=== PATIENT | male | born 1955 ===

== ENCOUNTER 2021-02-27 12:26 | Inpatient (IN) | payer MEDICARE ==
[2021-02-27 20:34] LABS: Basophils % (Auto) 0.7 % (0.0-1.8); Eosinophils # (Auto) 0.1 K/mm3 (0.0-0.4); Hematocrit 46.4 % (35.5-45.6); Hemoglobin 15.7 gm/dl (11.8-15.2); Lymphocytes # (Auto) 1.8 K/mm3 (1.2-5.4); Lymphocytes % (Auto) 25.4 % (13.4-35.0); Mean Corpuscular HGB Conc 34 % (32-34); Mean Corpuscular Volume 96 fl (84-94); Monocytes # (Auto) 0.7 K/mm3 (0.0-0.8); Monocytes % (Auto) 9.8 % (0.0-7.3); Platelet Count 261 K/mm3 (140-440); Red Blood Count 4.84 M/mm3 (3.65-5.03); Red Cell Distribution Width 14.3 % (13.2-15.2)
[2021-02-27 20:55] LABS: Alanine Aminotransferase 27 units/L (7-56); Albumin 4.5 g/dL (3.9-5); Blood Urea Nitrogen 12 mg/dL (9-20); Chol/HDL Ratio 2.25 %; HDL Cholesterol 62 mg/dL (40-59); Hemolysis Index 6; LDL Cholesterol,Direct 70 mg/dL (50-130)
[2021-02-27 20:59] LABS: BUN/Creatinine Ratio 17
[2021-02-27] MEDS: traZODone 50 MG TAB PO SCH (21:41)
[2021-02-27] MEDS: OMEGA-3 FATTY ACIDS/FISH OIL 1 GRAM CAP PO SCH (21:41)
[2021-02-28] MEDS: MELATONIN 5 MG TAB PO PRN (00:09)
--- NOTE | 2021-02-28 07:50 | History and Physical Report ---
GP History & Physical - History of Present Illness Date of admission: 02/27/21 Date of Examination: 02/28/21 Reason for Admission: Failure of Outpatient Treatment, Psychopathology interference History of Present Illness: HPI Patient is a 65-year-old retired with past psychiatric diagnosis of schizophrenia claims he does not have any mental health history admitted for acute psychosis management. Patient seen this a.m. patient states that he does not need to be here, stated that he does not have any mental health issues and is to go ahead and call his and does not know what to tell me. 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 PAST PSYCHIATRIC HISTORY: Diagnoses: Schizophrenia Suicide attempts or Self-harm behavior denies Prior psychiatric hospitalizations denies Substance Abuse history: Denies Previous psychiatric medications tried: Noncompliant Outpatient treatment: PAST MEDICAL HISTORY: None reported Family Psychiatric History: None reported or documented SOCIAL HISTORY Marital Status: Living Arrangements: With Employment Status: Retired Access to guns/weapons: None reported Education: 11th grade History of Abuse: None reported Legal History: None REVIEW OF SYSTEMS Constitutional: Negative for weight loss ENT: Negative for stridor Respiratory: Negative for cough or hemoptysis All other systems reviewed and are negative MENTAL STATUS EXAMINATION General Appearance and Behavior: Age appropriate, fair hygiene, wearing appropriate clothes, lying in bed, poor eye contact, cooperative irritable with questioning. Cooperation: Participating, Hostile and Guarded Psychomotor Behavior: unremarkable and within normal limits Mood: I don't know Affect and affective range: flat, preservative Thought Process: Illogical, Blocked, Thought Content: Hopelessness, Helplessness, Speech: Normal volume, Regular rate and rhythm, Intellectual Functioning: Average Suicidal Ideation: Denies SI Homicidal Ideation: Denies HI Impulse Control: Impaired Insight and Judgment: Limited insight and judgment Memory: Short term memory intact Attention: Divided attention impaired Orientation: Alert, oriented, Diagnoses: Treatment Plan Patient admitted for inpatient psychiatric evaluation, medication adjustment and close monitoring The patient's behavior, mood, sleep and appetite will be closely monitored. Patient enrolled in individual and group therapeutic sessions and encouraged to attend. Patient provided with a safe and structured environment. Patient's physical health needs will be addressed by the Hospitalist. Hospitalist Consulted Labs including CBC, CMP, Lipid profile and Hemoglobin A1C levels ordered for baseline reference Social Assessment will be completed and the Line Service Supervisor will work with patient and family to ensure a suitable and safe disposition Medication adjustment will be made as clinically indicated Usual Wellness Jew/Preservation: - Start Trazodone 50 mg po QHS & 50 mg po QHS PRN between 10 PM & 2 AM for insomnia - Start Melatonin 5 mg po QHS to promote circadian rhythm - Start [place]-3 for brain health, reduce impulsivity, and as adjunctive treatment for mood disorder, continue upon discharge given overall benefits. - Start B1 prophylaxis with 200 mg po for 5 days The patient agreed on the treatment plan, understood the risk, benefit, alternative treatment, potential consequence of no treatment, and gave informed consent. Initial Certification Inpatient psych services: I certify that the inpatient psychiatric services are required for treatment that could reasonably be expected to improve the patient's condition. Estimated days: 7 Post hospital care: primary care provider, psychiatric provider Legal Status: Voluntary Reaction to Hospitalization: Accepting Medications and Allergies Allergies Allergy/AdvReac Type Severity Reaction Status Date / Time No Known Allergies Allergy Verified 02/27/21 12:28 Home Medications Medication Instructions Recorded Confirmed Last Taken Type Benztropine [Cogentin] 1 mg PO BID 02/27/21 02/27/[address] [Audrey TAPIA] 1,000 mg PO DAILY 02/27/21 02/27/21 Unknown History [place] Carbonate 300 mg PO DAILY 02/27/21 02/27/21 Unknown History Nebulizer [Soothe Neb] 1 each MC Q6H 02/27/21 02/27/21 Unknown History QUEtiapine [SEROquel] 200 mg PO HS 02/27/21 02/27/21 Unknown History Temazepam [Restoril] 30 mg PO HS PRN 02/27/21 02/27/21 Unknown History traMADoL [Ultram 50 MG tab] 50 mg PO Q6H 02/27/21 02/27/21 Unknown History Active Meds: Active Medications Fish Oil ([place]-3 Fatty Acids/Fish Oil 1 Gram Cap) 2,000 mg PO BID REPLACED BY [facility] Last Admin: 02/27/21 21:41 Dose: 2,000 mg Documented by: Melatonin (Melatonin 5 Mg Tab) 5 mg PO QHS PRN PRN Reason: Sleep Last Admin: 02/28/21 00:09 Dose: 5 mg Documented by: Trazodone HCl (Trazodone 50 Mg Tab) 50 mg PO QHS REPLACED BY [facility] Last Admin: 02/27/21 21:41 Dose: 50 mg Documented by: Results - Results Labs/Vitals: Laboratory Last Values WBC 7.3 K/mm3 (4.5-11.0) 02/27/21 19:51 RBC 4.84 M/mm3 (3.65-5.03) 02/27/21 19:51 Hgb 15.7 gm/dl (11.8-15.2) H 02/27/21 19:51 Hct 46.4 % (35.5-45.6) H 02/27/21 19:51 MCV 96 fl (84-94) H 02/27/21 19:51 MCH 33 pg (28-32) H 02/27/21 19:51 MCHC 34 % (32-34) 02/27/21 19:51 RDW 14.3 % (13.2-15.2) 02/27/21 19:51 Plt Count 261 K/mm3 (140-440) 02/27/21 19:51 Lymph % (Auto) 25.4 % (13.4-35.0) 02/27/21 19:51 [place] % (Auto) 9.8 % (0.0-7.3) H 02/27/21 19:51 Eos % (Auto) 2.0 % (0.0-4.3) 02/27/21 19:51 Baso % (Auto) 0.7 % (0.0-1.8) 02/27/21 19:51 Lymph # (Auto) 1.8 K/mm3 (1.2-5.4) 02/27/21 19:51 [place] # (Auto) 0.7 K/mm3 (0.0-0.8) 02/27/21 19:51 Eos # (Auto) 0.1 K/mm3 (0.0-0.4) 02/27/21 19:51 Baso # (Auto) 0.0 K/mm3 (0.0-0.1) 02/27/21 19:51 Seg Neutrophils % 62.1 % (40.0-70.0) 02/27/21 19:51 Seg Neutrophils # 4.5 K/mm3 (1.8-7.7) 02/27/21 19:51 Sodium 141 mmol/L (137-145) 02/27/21 19:51 Potassium 4.2 mmol/L (3.6-5.0) 02/27/21 19:51 Chloride 104.0 mmol/L (98-107) 02/27/21 19:51 Carbon Dioxide 28 mmol/L (22-30) 02/27/21 19:51 Anion Gap 13 mmol/L 02/27/21 19:51 BUN 12 mg/dL (9-20) 02/27/21 19:51 Creatinine 0.7 mg/dL (0.8-1.3) L 02/27/21 19:51 Estimated GFR > 60 ml/min 02/27/21 19:51 BUN/Creatinine Ratio 17 % 02/27/21 19:51 Glucose 93 mg/dL (75-100) 02/27/21 19:51 POC Glucose 81 mg/dL (70-105) 02/27/21 20:20 Hemoglobin A1c 5.3 % (4-6) 02/27/21 19:51 Calcium 10.0 mg/dL (8.4-10.2) 02/27/21 19:51 Total Bilirubin 0.30 mg/dL (0.1-1.2) 02/27/21 19:51 AST 35 units/L (5-40) 02/27/21 19:51 ALT 27 units/L (7-56) 02/27/21 19:51 Alkaline Phosphatase 79 units/L (35-129) 02/27/21 19:51 Total Protein 7.5 g/dL (6.3-8.2) 02/27/21 19:51 Albumin 4.5 g/dL (3.9-5) 02/27/21 19:51 Albumin/Globulin Ratio 1.5 % 02/27/21 19:51 Triglycerides 74 mg/dL (2-149) 02/27/21 19:51 Cholesterol 140 mg/dL (50-199) 02/27/21 19:51 LDL Cholesterol Direct 70 mg/dL (50-130) 02/27/21 19:51 HDL Cholesterol 62 mg/dL (40-59) H 02/27/21 19:51 Cholesterol/HDL Ratio 2.25 % 02/27/21 19:51 TSH 1.800 mlU/mL (0.270-4.200) 02/27/21 19:51 Last Vital Signs Temp 98.3 F 02/27/21 22:00 Pulse 84 02/27/21 22:00 Resp 18 02/27/21 22:00 BP 114/90 02/27/21 22:00 Pulse Ox 98 02/27/21 22:00 Physical Examination - Constitutional Vitals: Vital Signs Temp Pulse Resp BP Pulse Ox 98.3 F 84 18 114/90 98 02/27/21 22:00 02/27/21 22:00 02/27/21 22:00 02/27/21 22:00 02/27/21 22:00 Temperature -Last 24 Hours Temperature 98.3 F Mental Status Exam - Vital signs Last Vital Signs Temp 98.3 F 02/27/21 22:00 Pulse 84 02/27/21 22:00 Resp 18 02/27/21 22:00 BP 114/90 02/27/21 22:00 Pulse Ox 98 02/27/21 22:00 Physician Certification - Certification Statement Physician Certification Statement: This is an acknowledgement statement that BECKI MARSH is a 65 year old M who requires inpatient psychiatric admission for treatment which could reasonably be expected to improve the patient's condition for Estimated period of time patient will need to remain in the hospital: [ ] Plan for post-hospital care: [ ]
[2021-02-28] MEDS: OMEGA-3 FATTY ACIDS/FISH OIL 1 GRAM CAP PO SCH ×2 (09:35→22:00)
--- NOTE | 2021-02-28 14:03 | History and Physical Report ---
History of Present Illness Date of examination: 02/28/21 Date of admission: 02/27/21 17:33 Chief complaint: Acute psychosis History of present illness: 65-year-old -[place] male with a past medical history of PTSD, schizophrenia, asthma presents with acute psychosis. Cannot get history from patient, he he states that he is to his who took his earring in caused him to become agitated. called EMS because patient was hallucinating and she fell threatened by the patient. EMS brought patient to [facility], patient was admitted for treatment of schizophrenia and acute psychosis. Past History Past Medical History: other (PTSD, schizophrenia, asthma) Past Surgical History: Other (Patient denies any surgical history) Social history: other (Patient smokes a pack of cigarettes per day for the last 40 years, no alcohol or illicit drug use) Family history: other (Patient denies any past family history) Medications and Allergies Allergies Allergy/AdvReac Type Severity Reaction Status Date / Time No Known Allergies Allergy Verified 02/27/21 12:28 Home Medications Medication Instructions Recorded Confirmed Last Taken Type Benztropine [Cogentin] 1 mg PO BID 02/27/21 02/27/[address] [DepEarnest DR] 1,000 mg PO DAILY 02/27/21 02/27/21 Unknown History [place] Carbonate 300 mg PO DAILY 02/27/21 02/27/21 Unknown History Nebulizer [Soothe Neb] 1 each MC Q6H 02/27/21 02/27/21 Unknown History QUEtiapine [SEROquel] 200 mg PO HS 02/27/21 02/27/21 Unknown History Temazepam [Restoril] 30 mg PO HS PRN 02/27/21 02/27/21 Unknown History traMADoL [Ultram 50 MG tab] 50 mg PO Q6H 02/27/21 02/27/21 Unknown History Active Meds: Active Medications Fish Oil ([place]-3 Fatty Acids/Fish Oil 1 Gram Cap) 2,000 mg PO BID [facility] Last Admin: 02/28/21 09:35 Dose: 2,000 mg Documented by: Melatonin (Melatonin 5 Mg Tab) 5 mg PO QHS PRN PRN Reason: Sleep Last Admin: 02/28/21 00:09 Dose: 5 mg Documented by: Trazodone HCl (Trazodone 50 Mg Tab) 50 mg PO QHS [facility] Last Admin: 02/27/21 21:41 Dose: 50 mg Documented by: Review of Systems ROS unobtainable: due to mental status (Cannot obtain, 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 No gallop, rub Extremities: no ischemia, No edema, normal temperature, normal color, Full ROM Abdominal: soft, no tenderness, non-distended, normal bowel sounds Integumentary: Present: clear, warm, dry no wounds, no erythema noted Psychiatric: Calm, denies any suicidal ideation, denies any homicidal ideation, no agitation Neurologic: CNII-XII intact, moves all extremities, no sensory or motor abnormalities - Constitutional Vitals: Temp Pulse Resp BP Pulse Ox 98.3 F 84 18 114/90 98 02/27/21 22:00 02/27/21 22:00 02/27/21 22:00 02/27/21 22:00 02/27/21 22:00 Results - Labs CBC & Chem 7: 02/27/21 19:51 02/27/21 19:51 Labs: Laboratory Last Values WBC 7.3 K/mm3 (4.5-11.0) 02/27/21 19:51 RBC 4.84 M/mm3 (3.65-5.03) 02/27/21 19:51 Hgb 15.7 gm/dl (11.8-15.2) H 02/27/21 19:51 Hct 46.4 % (35.5-45.6) H 02/27/21 19:51 MCV 96 fl (84-94) H 02/27/21 19:51 MCH 33 pg (28-32) H 02/27/21 19:51 MCHC 34 % (32-34) 02/27/21 19:51 RDW 14.3 % (13.2-15.2) 02/27/21 19:51 Plt Count 261 K/mm3 (140-440) 02/27/21 19:51 Lymph % (Auto) 25.4 % (13.4-35.0) 02/27/21 19:51 [place] % (Auto) 9.8 % (0.0-7.3) H 02/27/21 19:51 Eos % (Auto) 2.0 % (0.0-4.3) 02/27/21 19:51 Baso % (Auto) 0.7 % (0.0-1.8) 02/27/21 19:51 Lymph # (Auto) 1.8 K/mm3 (1.2-5.4) 02/27/21 19:51 [place] # (Auto) 0.7 K/mm3 (0.0-0.8) 02/27/21 19:51 Eos # (Auto) 0.1 K/mm3 (0.0-0.4) 02/27/21 19:51 Baso # (Auto) 0.0 K/mm3 (0.0-0.1) 02/27/21 19:51 Seg Neutrophils % 62.1 % (40.0-70.0) 02/27/21 19:51 Seg Neutrophils # 4.5 K/mm3 (1.8-7.7) 02/27/21 19:51 Sodium 141 mmol/L (137-145) 02/27/21 19:51 Potassium 4.2 mmol/L (3.6-5.0) 02/27/21 19:51 Chloride 104.0 mmol/L (98-107) 02/27/21 19:51 Carbon Dioxide 28 mmol/L (22-30) 02/27/21 19:51 Anion Gap 13 mmol/L 02/27/21 19:51 BUN 12 mg/dL (9-20) 02/27/21 19:51 Creatinine 0.7 mg/dL (0.8-1.3) L 02/27/21 19:51 Estimated GFR > 60 ml/min 02/27/21 19:51 BUN/Creatinine Ratio 17 % 02/27/21 19:51 Glucose 93 mg/dL (75-100) 02/27/21 19:51 POC Glucose 81 mg/dL (70-105) 02/27/21 20:20 Hemoglobin A1c 5.3 % (4-6) 02/27/21 19:51 Calcium 10.0 mg/dL (8.4-10.2) 02/27/21 19:51 Total Bilirubin 0.30 mg/dL (0.1-1.2) 02/27/21 19:51 AST 35 units/L (5-40) 02/27/21 19:51 ALT 27 units/L (7-56) 02/27/21 19:51 Alkaline Phosphatase 79 units/L (35-129) 02/27/21 19:51 Total Protein 7.5 g/dL (6.3-8.2) 02/27/21 19:51 Albumin 4.5 g/dL (3.9-5) 02/27/21 19:51 Albumin/Globulin Ratio 1.5 % 02/27/21 19:51 Triglycerides 74 mg/dL (2-149) 02/27/21 19:51 Cholesterol 140 mg/dL (50-199) 02/27/21 19:51 LDL Cholesterol Direct 70 mg/dL (50-130) 02/27/21 19:51 HDL Cholesterol 62 mg/dL (40-59) H 02/27/21 19:51 Cholesterol/HDL Ratio 2.25 % 02/27/21 19:51 TSH 1.800 mlU/mL (0.270-4.200) 02/27/21 19:51 Etienne/IV: Voiding Method Toilet Assessment and Plan Assessment and plan: 65-year-old -[place] male with a past medical history of PTSD, schizophrenia, asthma who presents with acute psychosis Acute psychosis Schizophrenia PTSD Patient is noncompliant with medications Patient started on psychiatric medications per psychiatry Continue to monitor patient's behavior Nicotine dependence Nicotine patch as needed Moderate protein caloric malnutrition Dietary supplements as needed Disposition: Continue treatment for acute psychosis, hospitalists available for any medical issues that arise.
[2021-02-28] MEDS: traZODone 50 MG TAB PO SCH (22:00)
--- NOTE | 2021-03-01 07:45 | Progress Note ---
Subjective Date of service: 03/01/21 Principal diagnosis: Schizophrenia Subjective Comment: Psych Nurse: pt was present for full duration of group but refused to engage. pt enjoyed the music aeb pt stood up and began to dance with peers and staff. pt smiled, laughed, jumped up and down, and had a great time dancing. pt danced and listened to the music for majority of group Psych Progress Patient seen this a.m., patient claims that the other day it was his agit ating him, patient states there is a lot going on at the house that I am not aware about. She then goes on talking about his different between him and his that he is 66 and she is 40, patient states that he does not like to be agitated, and that was exactly what she did the other day. Patient endorses that he has been compliant with all of his medication. Again patient went on to talk about how he served in the [employer], his age, his 's age, and how he does not like to be agitated REVIEW OF SYSTEMS Constitutional: Negative for weight loss ENT: Negative for stridor Respiratory: Negative for cough or hemoptysis All other systems reviewed and are negative MENTAL STATUS EXAMINATION General Appearance and Behavior: Age appropriate, fair hygiene, wearing appropriate clothes, lying in bed, poor eye contact, cooperative irritable with questioning. Cooperation: Participating, Hostile and Guarded Psychomotor Behavior: unremarkable and within normal limits Mood: I don't know Affect and affective range: flat, preservative Thought Process: Illogical, Blocked, Thought Content: Hopelessness, Helplessness, Speech: Normal volume, Regular rate and rhythm, Intellectual Functioning: Average Suicidal Ideation: Denies SI Homicidal Ideation: Denies HI Impulse Control: Impaired Insight and Judgment: Limited insight and judgment Memory: Short term memory intact Attention: Divided attention impaired Orientation: Alert, oriented, Assessment and Plan - Patient Problems (1) Schizophrenia Current Visit: Yes Status: Acute Treatment Plan Pt home medications restarted Patient admitted for inpatient psychiatric evaluation, medication adjustment and close monitoring The patient's behavior, mood, sleep and appetite will be closely monitored. Patient enrolled in individual and group therapeutic sessions and encouraged to attend. Patient provided with a safe and structured environment. Patient's physical health needs will be addressed by the Hospitalist. Hospitalist Consulted Labs including CBC, CMP, Lipid profile and Hemoglobin A1C levels ordered for baseline reference Social Assessment will be completed and the Communications Tech will work with patient and family to ensure a suitable and safe disposition Medication adjustment will be made as clinically indicated Usual Wellness Catholic/Preservation: - Start Trazodone 50 mg po QHS & 50 mg po QHS PRN between 10 PM & 2 AM for insomnia - Start Melatonin 5 mg po QHS to promote circadian rhythm - Start [place]-3 for brain health, reduce impulsivity, and as adjunctive treatment for mood disorder, continue upon discharge given overall benefits. - Start B1 prophylaxis with 200 mg po for 5 days The patient agreed on the treatment plan, understood the risk, benefit, alternative treatment, potential consequence of no treatment, and gave informed consent. Initial Certification Inpatient psych services: I certify that the inpatient psychiatric services are required for treatment that could reasonably be expected to improve the patient's condition. Estimated days: 6 Post hospital care: primary care provider, psychiatric provider Assessment and Plan - Patient Problems (1) Schizophrenia Current Visit: Yes Status: Acute Medications and Allergies Allergies Allergy/AdvReac Type Severity Reaction Status Date / Time No Known Allergies Allergy Verified 02/27/21 12:28 Home Medications Medication Instructions Recorded Confirmed Last Taken Type Benztropine [Cogentin] 1 mg PO BID 02/27/21 02/27/21 Unknown History Divalproex [Audrey TAPIA] 1,000 mg PO DAILY 02/27/21 02/27/21 Unknown History [place] Carbonate 300 mg PO DAILY 02/27/21 02/27/21 Unknown History Nebulizer [Soothe Neb] 1 each MC Q6H 02/27/21 02/27/21 Unknown History QUEtiapine [SEROquel] 200 mg PO HS 02/27/21 02/27/21 Unknown History Temazepam [Restoril] 30 mg PO HS PRN 02/27/21 02/27/21 Unknown History traMADoL [Ultram 50 MG tab] 50 mg PO Q6H 02/27/21 02/27/21 Unknown History Active Meds: Active Medications Fish Oil ([place]-3 Fatty Acids/Fish Oil 1 Gram Cap) 2,000 mg PO BID [facility] Last Admin: 02/28/21 22:00 Dose: 2,000 mg Documented by: Melatonin (Melatonin 5 Mg Tab) 5 mg PO QHS PRN PRN Reason: Sleep Last Admin: 02/28/21 00:09 Dose: 5 mg Documented by: Trazodone HCl (Trazodone 50 Mg Tab) 50 mg PO QHS [facility] Last Admin: 02/28/21 22:00 Dose: 50 mg Documented by: Results - Results Labs/Vitals: Laboratory Last Values WBC 7.3 K/mm3 (4.5-11.0) 02/27/21 19:51 RBC 4.84 M/mm3 (3.65-5.03) 02/27/21 19:51 Hgb 15.7 gm/dl (11.8-15.2) H 02/27/21 19:51 Hct 46.4 % (35.5-45.6) H 02/27/21 19:51 MCV 96 fl (84-94) H 02/27/21 19:51 MCH 33 pg (28-32) H 02/27/21 19:51 MCHC 34 % (32-34) 02/27/21 19:51 RDW 14.3 % (13.2-15.2) 02/27/21 19:51 Plt Count 261 K/mm3 (140-440) 02/27/21 19:51 Lymph % (Auto) 25.4 % (13.4-35.0) 02/27/21 19:51 [place] % (Auto) 9.8 % (0.0-7.3) H 02/27/21 19:51 Eos % (Auto) 2.0 % (0.0-4.3) 02/27/21 19:51 Baso % (Auto) 0.7 % (0.0-1.8) 02/27/21 19:51 Lymph # (Auto) 1.8 K/mm3 (1.2-5.4) 02/27/21 19:51 [place] # (Auto) 0.7 K/mm3 (0.0-0.8) 02/27/21 19:51 Eos # (Auto) 0.1 K/mm3 (0.0-0.4) 02/27/21 19:51 Baso # (Auto) 0.0 K/mm3 (0.0-0.1) 02/27/21 19:51 Seg Neutrophils % 62.1 % (40.0-70.0) 02/27/21 19:51 Seg Neutrophils # 4.5 K/mm3 (1.8-7.7) 02/27/21 19:51 Sodium 141 mmol/L (137-145) 02/27/21 19:51 Potassium 4.2 mmol/L (3.6-5.0) 02/27/21 19:51 Chloride 104.0 mmol/L (98-107) 02/27/21 19:51 Carbon Dioxide 28 mmol/L (22-30) 02/27/21 19:51 Anion Gap 13 mmol/L 02/27/21 19:51 BUN 12 mg/dL (9-20) 02/27/21 19:51 Creatinine 0.7 mg/dL (0.8-1.3) L 02/27/21 19:51 Estimated GFR > 60 ml/min 02/27/21 19:51 BUN/Creatinine Ratio 17 % 02/27/21 19:51 Glucose 93 mg/dL (75-100) 02/27/21 19:51 POC Glucose 81 mg/dL (70-105) 02/27/21 20:20 Hemoglobin A1c 5.3 % (4-6) 02/27/21 19:51 Calcium 10.0 mg/dL (8.4-10.2) 02/27/21 19:51 Total Bilirubin 0.30 mg/dL (0.1-1.2) 02/27/21 19:51 AST 35 units/L (5-40) 02/27/21 19:51 ALT 27 units/L (7-56) 02/27/21 19:51 Alkaline Phosphatase 79 units/L (35-129) 02/27/21 19:51 Total Protein 7.5 g/dL (6.3-8.2) 02/27/21 19:51 Albumin 4.5 g/dL (3.9-5) 02/27/21 19:51 Albumin/Globulin Ratio 1.5 % 02/27/21 19:51 Triglycerides 74 mg/dL (2-149) 02/27/21 19:51 Cholesterol 140 mg/dL (50-199) 02/27/21 19:51 LDL Cholesterol Direct 70 mg/dL (50-130) 02/27/21 19:51 HDL Cholesterol 62 mg/dL (40-59) H 02/27/21 19:51 Cholesterol/HDL Ratio 2.25 % 02/27/21 19:51 TSH 1.800 mlU/mL (0.270-4.200) 02/27/21 19:51 Last Vital Signs Temp 98.5 F 02/28/21 20:46 Pulse 70 02/28/21 20:46 Resp 16 02/28/21 20:46 BP 135/91 02/28/21 20:46 Pulse Ox 98 02/28/21 20:46
[2021-03-01] MEDS ORDERED: TEMAZEPAM 30 MG PO PRN (08:28)
[2021-03-01] MEDS ORDERED: NON-FORMULARY EACH (Lithium Carbonate [Lithium Carbonate] 300 MG Tablet) PO SCH (10:00)
[2021-03-01] MEDS: BENZTROPINE 1 MG TAB PO SCH ×2 (10:14→21:21)
[2021-03-01] MEDS: DIVALPROEX DR 500 MG TAB PO SCH (10:14)
[2021-03-01] MEDS: OMEGA-3 FATTY ACIDS/FISH OIL 1 GRAM CAP PO SCH ×2 (10:14→21:22)
[2021-03-01] MEDS: LITHIUM CARBONATE ER 300 MG TAB PO SCH (10:15)
[2021-03-01] MEDS: MELATONIN 5 MG TAB PO PRN (21:21)
[2021-03-01] MEDS: QUEtiapine 200 MG TAB PO SCH (21:22)
[2021-03-01] MEDS: traZODone 50 MG TAB PO SCH (21:22)
[2021-03-01] MEDS ORDERED: TEMAZEPAM 15 MG CAP PO PRN (22:00)
--- NOTE | 2021-03-02 07:54 | Progress Note ---
Subjective Date of service: 03/02/21 Principal diagnosis: Schizophrenia Subjective Comment: Psych Nurse: Pt has been calm, complainant w/ meds, cooperative w/ staff, attentive during groups and social w/ others. In between groups pt danced, walked up and down the pollack's and watched tv. pt's room has been locked for safety, pt has not been able to flood his room. Pt is independent w/ ADL's, has good appetite and a steady gait. Psych Progress Patient seen this a.m., patient reported talking with his yesterday, endorses feeling much better today. Patient denies SI HI auditory visual hallucinations. 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 Cooperation: Participating, Hostile and Guarded Psychomotor Behavior: unremarkable and within normal limits Mood: feeling better Affect and affective range:mood congruent Thought Process: Illogical Thought Content: within Speech: Normal volume, Regular rate and rhythm, Intellectual Functioning: Average Suicidal Ideation: Denies SI Homicidal Ideation: Denies HI Impulse Control: Impaired Insight and Judgment: Limited insight and judgment Memory: Short term memory intact Attention: Divided attention impaired Orientation: Alert, oriented, Assessment and Plan - Patient Problems (1) Schizophrenia Current Visit: Yes Status: Acute Treatment Plan Pt home medications restarted Patient admitted for inpatient psychiatric evaluation, medication adjustment and close monitoring The patient's behavior, mood, sleep and appetite will be closely monitored. Patient enrolled in individual and group therapeutic sessions and encouraged to attend. Patient provided with a safe and structured environment. Patient's physical health needs will be addressed by the Hospitalist. Hospitalist Consulted Labs including CBC, CMP, Lipid profile and Hemoglobin A1C levels ordered for baseline reference Social Assessment will be completed and the Web Site Developer will work with patient and family to ensure a suitable and safe disposition Medication adjustment will be made as clinically indicated Usual Wellness [facility]/Preservation: - Start Trazodone 50 mg po QHS & 50 mg po QHS PRN between 10 PM & 2 AM for insomnia - Start Melatonin 5 mg po QHS to promote circadian rhythm - Start [place]-3 for brain health, reduce impulsivity, and as adjunctive treatment for mood disorder, continue upon discharge given overall benefits. - Start B1 prophylaxis with 200 mg po for 5 days The patient agreed on the treatment plan, understood the risk, benefit, alternative treatment, potential consequence of no treatment, and gave informed consent. Initial Certification Inpatient psych services: I certify that the inpatient psychiatric services are required for treatment that could reasonably be expected to improve the patient's condition. Estimated days: 5 Post hospital care: primary care provider, psychiatric provider Assessment and Plan - Patient Problems (1) Schizophrenia Current Visit: Yes Status: Acute Medications and Allergies Allergies Allergy/AdvReac Type Severity Reaction Status Date / Time No Known Allergies Allergy Verified 02/27/21 12:28 Home Medications Medication Instructions Recorded Confirmed Last Taken Type Benztropine [Cogentin] 1 mg PO BID 02/27/21 02/27/[address] [Audrey TAPIA] 1,000 mg PO DAILY 02/27/21 02/27/21 Unknown History [place] Carbonate 300 mg PO DAILY 02/27/21 02/27/21 Unknown History Nebulizer [Soothe Neb] 1 each MC Q6H 02/27/21 02/27/21 Unknown History QUEtiapine [SEROquel] 200 mg PO HS 02/27/21 02/27/21 Unknown History Temazepam [Restoril] 30 mg PO HS PRN 02/27/21 02/27/21 Unknown History traMADoL [Ultram 50 MG tab] 50 mg PO Q6H 02/27/21 02/27/21 Unknown History Active Meds: Active Medications Benztropine Mesylate (Benztropine 1 Mg Tab) 1 mg PO BID [facility] Last Admin: 03/01/21 21:21 Dose: 1 mg Documented by: Divalproex Sodium (Divalproex Dr 500 Mg Tab) 1,000 mg PO DAILY [facility] Last Admin: 03/01/21 10:14 Dose: 1,000 mg Documented by: Fish Oil ([place]-3 Fatty Acids/Fish Oil 1 Gram Cap) 2,000 mg PO BID [facility] Last Admin: 03/01/21 21:22 Dose: 2,000 mg Documented by: [place] Carbonate ([place] Carbonate Er 300 Mg Tab) 300 mg PO DAILY [facility] Last Admin: 03/01/21 10:15 Dose: 300 mg Documented by: Melatonin (Melatonin 5 Mg Tab) 5 mg PO QHS PRN PRN Reason: Sleep Last Admin: 03/01/21 21:21 Dose: 5 mg Documented by: Quetiapine Fumarate (Quetiapine 200 Mg Tab) 200 mg PO HS [facility] Last Admin: 03/01/21 21:22 Dose: 200 mg Documented by: Temazepam (Temazepam 15 Mg Cap) 30 mg PO QHS PRN PRN Reason: Sleep Trazodone HCl (Trazodone 50 Mg Tab) 50 mg PO QHS [facility] Last Admin: 03/01/21 21:22 Dose: 50 mg Documented by: Results - Results Labs/Vitals: Laboratory Last Values WBC 7.3 K/mm3 (4.5-11.0) 02/27/21 19:51 RBC 4.84 M/mm3 (3.65-5.03) 02/27/21 19:51 Hgb 15.7 gm/dl (11.8-15.2) H 02/27/21 19:51 Hct 46.4 % (35.5-45.6) H 02/27/21 19:51 MCV 96 fl (84-94) H 02/27/21 19:51 MCH 33 pg (28-32) H 02/27/21 19:51 MCHC 34 % (32-34) 02/27/21 19:51 RDW 14.3 % (13.2-15.2) 02/27/21 19:51 Plt Count 261 K/mm3 (140-440) 02/27/21 19:51 Lymph % (Auto) 25.4 % (13.4-35.0) 02/27/21 19:51 [place] % (Auto) 9.8 % (0.0-7.3) H 02/27/21 19:51 Eos % (Auto) 2.0 % (0.0-4.3) 02/27/21 19:51 Baso % (Auto) 0.7 % (0.0-1.8) 02/27/21 19:51 Lymph # (Auto) 1.8 K/mm3 (1.2-5.4) 02/27/21 19:51 [place] # (Auto) 0.7 K/mm3 (0.0-0.8) 02/27/21 19:51 Eos # (Auto) 0.1 K/mm3 (0.0-0.4) 02/27/21 19:51 Baso # (Auto) 0.0 K/mm3 (0.0-0.1) 02/27/21 19:51 Seg Neutrophils % 62.1 % (40.0-70.0) 02/27/21 19:51 Seg Neutrophils # 4.5 K/mm3 (1.8-7.7) 02/27/21 19:51 Sodium 141 mmol/L (137-145) 02/27/21 19:51 Potassium 4.2 mmol/L (3.6-5.0) 02/27/21 19:51 Chloride 104.0 mmol/L (98-107) 02/27/21 19:51 Carbon Dioxide 28 mmol/L (22-30) 02/27/21 19:51 Anion Gap 13 mmol/L 02/27/21 19:51 BUN 12 mg/dL (9-20) 02/27/21 19:51 Creatinine 0.7 mg/dL (0.8-1.3) L 02/27/21 19:51 Estimated GFR > 60 ml/min 02/27/21 19:51 BUN/Creatinine Ratio 17 % 02/27/21 19:51 Glucose 93 mg/dL (75-100) 02/27/21 19:51 POC Glucose 81 mg/dL (70-105) 02/27/21 20:20 Hemoglobin A1c 5.3 % (4-6) 02/27/21 19:51 Calcium 10.0 mg/dL (8.4-10.2) 02/27/21 19:51 Total Bilirubin 0.30 mg/dL (0.1-1.2) 02/27/21 19:51 AST 35 units/L (5-40) 02/27/21 19:51 ALT 27 units/L (7-56) 02/27/21 19:51 Alkaline Phosphatase 79 units/L (35-129) 02/27/21 19:51 Total Protein 7.5 g/dL (6.3-8.2) 02/27/21 19:51 Albumin 4.5 g/dL (3.9-5) 02/27/21 19:51 Albumin/Globulin Ratio 1.5 % 02/27/21 19:51 Triglycerides 74 mg/dL (2-149) 02/27/21 19:51 Cholesterol 140 mg/dL (50-199) 02/27/21 19:51 LDL Cholesterol Direct 70 mg/dL (50-130) 02/27/21 19:51 HDL Cholesterol 62 mg/dL (40-59) H 02/27/21 19:51 Cholesterol/HDL Ratio 2.25 % 02/27/21 19:51 TSH 1.800 mlU/mL (0.270-4.200) 02/27/21 19:51 Last Vital Signs Temp 97.8 F 03/01/21 22:00 Pulse 75 03/01/21 22:00 Resp 18 03/01/21 22:00 BP 107/75 03/01/21 22:00 Pulse Ox 100 03/01/21 22:00
[2021-03-02] MEDS: OMEGA-3 FATTY ACIDS/FISH OIL 1 GRAM CAP PO SCH ×2 (09:05→22:09)
[2021-03-02] MEDS: LITHIUM CARBONATE ER 300 MG TAB PO SCH (09:05)
[2021-03-02] MEDS: BENZTROPINE 1 MG TAB PO SCH ×2 (09:05→22:09)
[2021-03-02] MEDS: DIVALPROEX DR 500 MG TAB PO SCH (09:05)
[2021-03-02] MEDS: traZODone 50 MG TAB PO SCH (22:09)
[2021-03-02] MEDS: QUEtiapine 200 MG TAB PO SCH (22:09)
[2021-03-02] MEDS: MELATONIN 5 MG TAB PO PRN (22:11)
--- NOTE | 2021-03-03 09:10 | Progress Note ---
Subjective Date of service: 03/03/21 Principal diagnosis: Schizophrenia Subjective Comment: Per Nurse Note: pt received in hallway A&Ox4 and irritable. Pt denies AVH, SI/HI. Pt intentionally flooded his room this morning via the shower. Pt's room has been locked for safety. Close monitoring continues. The patient was seen today, he appears anxious when first observed him. He is initially pacing back and forth in the pollack. When I later saw him, he is sitting at the table in the dayroom. He is delusional. He is moving his hands as if he has something in them, but it is nothing there. He is also placing invisible things up to his mouth as attempting to eat. The patient appears very drowsy. He is mumbling at times. He says he was admitted for a "nervous breakdown." He denies SI/HI or hallucinations of any kind. REVIEW OF SYSTEMS Constitutional: Negative for weight loss ENT: Negative for stridor Respiratory: Negative for cough or hemoptysis All other systems reviewed and are negative MENTAL STATUS EXAMINATION General Appearance and Behavior: Age appropriate, fair hygiene, wearing appropriate clothes, pacing, drowsy, poor eye contact, cooperative irritable with questioning. Cooperation: Participating, Hostile and Guarded Psychomotor Behavior: unremarkable and within normal limits Mood: feeling better Affect and affective range:mood congruent Thought Process: Illogical Thought Content: within Speech: Normal volume, Regular rate and rhythm, Intellectual Functioning: Average Suicidal Ideation: Denies SI Homicidal Ideation: Denies HI Hallucinations: Denies Delusions: yet Impulse Control: Impaired Insight and Judgment: Limited insight and judgment Memory: Short term memory intact Attention: Divided attention impaired Orientation: Alert, oriented, Assessment and Plan (1) Schizophrenia Current Visit: Yes Status: Acute Treatment Plan Patient admitted for inpatient psychiatric evaluation, medication adjustment and close monitoring The patient's behavior, mood, sleep and appetite will be closely monitored. Patient enrolled in individual and group therapeutic sessions and encouraged to attend. Patient provided with a safe and structured environment. Patient's physical health needs will be addressed by the Hospitalist. Hospitalist Consulted Labs including CBC, CMP, Lipid profile and Hemoglobin A1C levels ordered for baseline reference Social Assessment will be completed and the Platen Grinder will work with patient and family to ensure a suitable and safe disposition Medication adjustment will be made as clinically indicated Decreased Restoril 15mg to prevent daytime drowsiness and polypharmacy Discontinued Trazodone 50mg po qhs Usual Wellness [facility]/Preservation: - Start Trazodone 50 mg po QHS & 50 mg po QHS PRN between 10 PM & 2 AM for insomnia - Start Melatonin 5 mg po QHS to promote circadian rhythm - Start [place]-3 for brain health, reduce impulsivity, and as adjunctive treatment for mood disorder, continue upon discharge given overall benefits. - Start B1 prophylaxis with 200 mg po for 5 days The patient agreed on the treatment plan, understood the risk, benefit, alternative treatment, potential consequence of no treatment, and gave informed consent. ESLOS 5 days Outpatient psych upon discharge Medications and Allergies Allergies Allergy/AdvReac Type Severity Reaction Status Date / Time No Known Allergies Allergy Verified 02/27/21 12:28 Home Medications Medication Instructions Recorded Confirmed Last Taken Type Benztropine [Cogentin] 1 mg PO BID 02/27/21 02/27/[address] [Audrey TAPIA] 1,000 mg PO DAILY 02/27/21 02/27/21 Unknown History [place] Carbonate 300 mg PO DAILY 02/27/21 02/27/21 Unknown History Nebulizer [Soothe Neb] 1 each [facility] Q6H 02/27/21 02/27/21 Unknown History QUEtiapine [SEROquel] 200 mg PO HS 02/27/21 02/27/21 Unknown History Temazepam [Restoril] 30 mg PO HS PRN 02/27/21 02/27/21 Unknown History traMADoL [Ultram 50 MG tab] 50 mg PO Q6H 02/27/21 02/27/21 Unknown History Active Meds: Active Medications Benztropine Mesylate (Benztropine 1 Mg Tab) 1 mg PO BID [facility] Last Admin: 03/02/21 22:09 Dose: 1 mg Documented by: Divalproex Sodium (Divalproex Dr 500 Mg Tab) 1,000 mg PO DAILY [facility] Last Admin: 03/02/21 09:05 Dose: 1,000 mg Documented by: Fish Oil ([place]-3 Fatty Acids/Fish Oil 1 Gram Cap) 2,000 mg PO BID [facility] Last Admin: 03/02/21 22:09 Dose: 2,000 mg Documented by: [place] Carbonate ([place] Carbonate Er 300 Mg Tab) 300 mg PO DAILY [facility] Last Admin: 03/02/21 09:05 Dose: 300 mg Documented by: Melatonin (Melatonin 5 Mg Tab) 5 mg PO QHS PRN PRN Reason: Sleep Last Admin: 03/02/21 22:11 Dose: 5 mg Documented by: Quetiapine Fumarate (Quetiapine 200 Mg Tab) 200 mg PO HS [facility] Last Admin: 03/02/21 22:09 Dose: 200 mg Documented by: Temazepam (Temazepam 15 Mg Cap) 30 mg PO QHS PRN PRN Reason: Sleep Last Admin: 03/02/21 22:12 Dose: 30 mg Documented by: Trazodone HCl (Trazodone 50 Mg Tab) 50 mg PO QHS [facility] Last Admin: 03/02/21 22:09 Dose: 50 mg Documented by: Results - Results Labs/Vitals: Laboratory Last Values WBC 7.3 K/mm3 (4.5-11.0) 02/27/21 19:51 RBC 4.84 M/mm3 (3.65-5.03) 02/27/21 19:51 Hgb 15.7 gm/dl (11.8-15.2) H 02/27/21 19:51 Hct 46.4 % (35.5-45.6) H 02/27/21 19:51 MCV 96 fl (84-94) H 02/27/21 19:51 MCH 33 pg (28-32) H 02/27/21 19:51 MCHC 34 % (32-34) 02/27/21 19:51 RDW 14.3 % (13.2-15.2) 02/27/21 19:51 Plt Count 261 K/mm3 (140-440) 02/27/21 19:51 Lymph % (Auto) 25.4 % (13.4-35.0) 02/27/21 19:51 [place] % (Auto) 9.8 % (0.0-7.3) H 02/27/21 19:51 Eos % (Auto) 2.0 % (0.0-4.3) 02/27/21 19:51 Baso % (Auto) 0.7 % (0.0-1.8) 02/27/21 19:51 Lymph # (Auto) 1.8 K/mm3 (1.2-5.4) 02/27/21 19:51 [place] # (Auto) 0.7 K/mm3 (0.0-0.8) 02/27/21 19:51 Eos # (Auto) 0.1 K/mm3 (0.0-0.4) 02/27/21 19:51 Baso # (Auto) 0.0 K/mm3 (0.0-0.1) 02/27/21 19:51 Seg Neutrophils % 62.1 % (40.0-70.0) 02/27/21 19:51 Seg Neutrophils # 4.5 K/mm3 (1.8-7.7) 02/27/21 19:51 Sodium 141 mmol/L (137-145) 02/27/21 19:51 Potassium 4.2 mmol/L (3.6-5.0) 02/27/21 19:51 Chloride 104.0 mmol/L (98-107) 02/27/21 19:51 Carbon Dioxide 28 mmol/L (22-30) 02/27/21 19:51 Anion Gap 13 mmol/L 02/27/21 19:51 BUN 12 mg/dL (9-20) 02/27/21 19:51 Creatinine 0.7 mg/dL (0.8-1.3) L 02/27/21 19:51 Estimated GFR > 60 ml/min 02/27/21 19:51 BUN/Creatinine Ratio 17 % 02/27/21 19:51 Glucose 93 mg/dL (75-100) 02/27/21 19:51 POC Glucose 81 mg/dL (70-105) 02/27/21 20:20 Hemoglobin A1c 5.3 % (4-6) 02/27/21 19:51 Calcium 10.0 mg/dL (8.4-10.2) 02/27/21 19:51 Total Bilirubin 0.30 mg/dL (0.1-1.2) 02/27/21 19:51 AST 35 units/L (5-40) 02/27/21 19:51 ALT 27 units/L (7-56) 02/27/21 19:51 Alkaline Phosphatase 79 units/L (35-129) 02/27/21 19:51 Total Protein 7.5 g/dL (6.3-8.2) 02/27/21 19:51 Albumin 4.5 g/dL (3.9-5) 02/27/21 19:51 Albumin/Globulin Ratio 1.5 % 02/27/21 19:51 Triglycerides 74 mg/dL (2-149) 02/27/21 19:51 Cholesterol 140 mg/dL (50-199) 02/27/21 19:51 LDL Cholesterol Direct 70 mg/dL (50-130) 02/27/21 19:51 HDL Cholesterol 62 mg/dL (40-59) H 02/27/21 19:51 Cholesterol/HDL Ratio 2.25 % 02/27/21 19:51 TSH 1.800 mlU/mL (0.270-4.200) 02/27/21 19:51 Last Vital Signs Temp 97.8 F 03/02/21 19:53 Pulse 83 03/03/21 08:34 Resp 20 03/03/21 08:34 BP 99/75 03/03/21 08:34 Pulse Ox 96 03/03/21 08:34
[2021-03-03] MEDS ORDERED: TEMAZEPAM 15 MG CAP PO PRN (09:15)
[2021-03-03] MEDS: OMEGA-3 FATTY ACIDS/FISH OIL 1 GRAM CAP PO SCH ×2 (09:29→21:17)
[2021-03-03] MEDS: LITHIUM CARBONATE ER 300 MG TAB PO SCH (09:29)
[2021-03-03] MEDS: DIVALPROEX DR 500 MG TAB PO SCH (09:29)
[2021-03-03] MEDS: BENZTROPINE 1 MG TAB PO SCH ×2 (09:30→21:17)
[2021-03-03] MEDS: QUEtiapine 200 MG TAB PO SCH (21:17)
--- NOTE | 2021-03-04 08:26 | Progress Note ---
Subjective Date of service: 03/04/21 Principal diagnosis: Schizophrenia Subjective Comment: Per Nurse Note: Last evening the patient was angry. He leaves the shower on and floods the room. Due to that reason he is limited to time in his room. He was irritable and pacing throughout the evening. He yelled at staff several times. He states his is a nurse and he talked to her multiple times. His thoughts present as disjointed and he has pressured speech. Patient behavior is restless. He denies si/hi/ah/vh. Patient has a good appetite and is medication compliant. Patient had a difficult time going to sleep. He was offered Restoril for sleep but he became angry and refused to take it. He states it is too much. He is observed "fighting" his medication in an effort to stay awake. Patient attempted to go into other rooms. He went in and out of his room throughout the night. He only slept around 2 hours and remains irritable. Will continue to monitor patient for safety. The patient was seen today, he is more with it today than yesterday. The patient was calm today, although he has periods where he paces the unit, easily agitated and is delusional. He denies SI/HI. REVIEW OF SYSTEMS Constitutional: Negative for weight loss ENT: Negative for stridor Respiratory: Negative for cough or hemoptysis All other systems reviewed and are negative MENTAL STATUS EXAMINATION General Appearance and Behavior: Age appropriate, fair hygiene, wearing appropriate clothes, pacing, drowsy, poor eye contact, cooperative irritable with questioning. Cooperation: Participating, Hostile and Guarded Psychomotor Behavior: unremarkable and within normal limits Mood: feeling better Affect and affective range:mood congruent Thought Process: Illogical Thought Content: within Speech: Normal volume, Regular rate and rhythm, Intellectual Functioning: Average Suicidal Ideation: Denies SI Homicidal Ideation: Denies HI Hallucinations: Denies Delusions: yet Impulse Control: Impaired Insight and Judgment: Limited insight and judgment Memory: Short term memory intact Attention: Divided attention impaired Orientation: Alert, oriented, Assessment and Plan (1) Schizophrenia Current Visit: Yes Status: Acute Treatment Plan Patient admitted for inpatient psychiatric evaluation, medication adjustment and close monitoring The patient's behavior, mood, sleep and appetite will be closely monitored. Patient enrolled in individual and group therapeutic sessions and encouraged to attend. Patient provided with a safe and structured environment. Patient's physical health needs will be addressed by the Hospitalist. Hospitalist Consulted Labs including CBC, CMP, Lipid profile and Hemoglobin A1C levels ordered for baseline reference Valproic level 03/06/21 Social Assessment will be completed and the Fire Safety Manager will work with patient and family to ensure a suitable and safe disposition Medication adjustment will be made as clinically indicated Decreased Restoril 15mg to prevent daytime drowsiness and polypharmacy yesterday Discontinued Trazodone 50mg po qhs yesterday Increased Depakote DR 500mg po TID Usual Wellness [facility]/Preservation: - Start Trazodone 50 mg po QHS & 50 mg po QHS PRN between 10 PM & 2 AM for insomnia - Start Melatonin 5 mg po QHS to promote circadian rhythm - Start [place]-3 for brain health, reduce impulsivity, and as adjunctive treatment for mood disorder, continue upon discharge given overall benefits. - Start B1 prophylaxis with 200 mg po for 5 days The patient agreed on the treatment plan, understood the risk, benefit, alternative treatment, potential consequence of no treatment, and gave informed consent. ESLOS 5 days Outpatient psych upon discharge Medications and Allergies Allergies Allergy/AdvReac Type Severity Reaction Status Date / Time No Known Allergies Allergy Verified 02/27/21 12:28 Home Medications Medication Instructions Recorded Confirmed Last Taken Type Benztropine [Cogentin] 1 mg PO BID 02/27/21 02/27/[address] [DepaKOTE DR] 1,000 mg PO DAILY 02/27/21 02/27/21 Unknown History [place] Carbonate 300 mg PO DAILY 02/27/21 02/27/21 Unknown History Nebulizer [Soothe Neb] 1 each MC Q6H 02/27/21 02/27/21 Unknown History QUEtiapine [SEROquel] 200 mg PO HS 02/27/21 02/27/21 Unknown History Temazepam [Restoril] 30 mg PO HS PRN 02/27/21 02/27/21 Unknown History traMADoL [Ultram 50 MG tab] 50 mg PO Q6H 02/27/21 02/27/21 Unknown History Active Meds: Active Medications Benztropine Mesylate (Benztropine 1 Mg Tab) 1 mg PO BID [facility] Last Admin: 03/03/21 21:17 Dose: 1 mg Documented by: Divalproex Sodium (Divalproex Dr 500 Mg Tab) 1,000 mg PO DAILY [facility] Last Admin: 03/03/21 09:29 Dose: 1,000 mg Documented by: Fish Oil ([place]-3 Fatty Acids/Fish Oil 1 Gram Cap) 2,000 mg PO BID [facility] Last Admin: 03/03/21 21:17 Dose: 2,000 mg Documented by: [place] Carbonate ([place] Carbonate Er 300 Mg Tab) 300 mg PO DAILY [facility] Last Admin: 03/03/21 09:29 Dose: 300 mg Documented by: Melatonin (Melatonin 5 Mg Tab) 5 mg PO QHS PRN PRN Reason: Sleep Last Admin: 03/02/21 22:11 Dose: 5 mg Documented by: Quetiapine Fumarate (Quetiapine 200 Mg Tab) 200 mg PO HS [facility] Last Admin: 03/03/21 21:17 Dose: 200 mg Documented by: Temazepam (Temazepam 15 Mg Cap) 30 mg PO QHS PRN PRN Reason: Sleep Last Admin: 03/02/21 22:12 Dose: 30 mg Documented by: Temazepam (Temazepam 15 Mg Cap) 15 mg PO QHS PRN PRN Reason: Sleep Results - Results Labs/Vitals: Laboratory Last Values WBC 7.3 K/mm3 (4.5-11.0) 02/27/21 19:51 RBC 4.84 M/mm3 (3.65-5.03) 02/27/21 19:51 Hgb 15.7 gm/dl (11.8-15.2) H 02/27/21 19:51 Hct 46.4 % (35.5-45.6) H 02/27/21 19:51 MCV 96 fl (84-94) H 02/27/21 19:51 MCH 33 pg (28-32) H 02/27/21 19:51 MCHC 34 % (32-34) 02/27/21 19:51 RDW 14.3 % (13.2-15.2) 02/27/21 19:51 Plt Count 261 K/mm3 (140-440) 02/27/21 19:51 Lymph % (Auto) 25.4 % (13.4-35.0) 02/27/21 19:51 [place] % (Auto) 9.8 % (0.0-7.3) H 02/27/21 19:51 Eos % (Auto) 2.0 % (0.0-4.3) 02/27/21 19:51 Baso % (Auto) 0.7 % (0.0-1.8) 02/27/21 19:51 Lymph # (Auto) 1.8 K/mm3 (1.2-5.4) 02/27/21 19:51 [place] # (Auto) 0.7 K/mm3 (0.0-0.8) 02/27/21 19:51 Eos # (Auto) 0.1 K/mm3 (0.0-0.4) 02/27/21 19:51 Baso # (Auto) 0.0 K/mm3 (0.0-0.1) 02/27/21 19:51 Seg Neutrophils % 62.1 % (40.0-70.0) 02/27/21 19:51 Seg Neutrophils # 4.5 K/mm3 (1.8-7.7) 02/27/21 19:51 Sodium 141 mmol/L (137-145) 02/27/21 19:51 Potassium 4.2 mmol/L (3.6-5.0) 02/27/21 19:51 Chloride 104.0 mmol/L (98-107) 02/27/21 19:51 Carbon Dioxide 28 mmol/L (22-30) 02/27/21 19:51 Anion Gap 13 mmol/L 02/27/21 19:51 BUN 12 mg/dL (9-20) 02/27/21 19:51 Creatinine 0.7 mg/dL (0.8-1.3) L 02/27/21 19:51 Estimated GFR > 60 ml/min 02/27/21 19:51 BUN/Creatinine Ratio 17 % 02/27/21 19:51 Glucose 93 mg/dL (75-100) 02/27/21 19:51 POC Glucose 81 mg/dL (70-105) 02/27/21 20:20 Hemoglobin A1c 5.3 % (4-6) 02/27/21 19:51 Calcium 10.0 mg/dL (8.4-10.2) 02/27/21 19:51 Total Bilirubin 0.30 mg/dL (0.1-1.2) 02/27/21 19:51 AST 35 units/L (5-40) 02/27/21 19:51 ALT 27 units/L (7-56) 02/27/21 19:51 Alkaline Phosphatase 79 units/L (35-129) 02/27/21 19:51 Total Protein 7.5 g/dL (6.3-8.2) 02/27/21 19:51 Albumin 4.5 g/dL (3.9-5) 02/27/21 19:51 Albumin/Globulin Ratio 1.5 % 02/27/21 19:51 Triglycerides 74 mg/dL (2-149) 02/27/21 19:51 Cholesterol 140 mg/dL (50-199) 02/27/21 19:51 LDL Cholesterol Direct 70 mg/dL (50-130) 02/27/21 19:51 HDL Cholesterol 62 mg/dL (40-59) H 02/27/21 19:51 Cholesterol/HDL Ratio 2.25 % 02/27/21 19:51 TSH 1.800 mlU/mL (0.270-4.200) 02/27/21 19:51 Last Vital Signs Temp 98.8 F 03/03/21 20:09 Pulse 83 03/03/21 20:09 Resp 16 03/03/21 20:09 BP 121/78 03/03/21 20:09 Pulse Ox 99 03/03/21 20:09
[2021-03-04] MEDS: OMEGA-3 FATTY ACIDS/FISH OIL 1 GRAM CAP PO SCH ×2 (09:07→21:05)
[2021-03-04] MEDS: LITHIUM CARBONATE ER 300 MG TAB PO SCH (09:07)
[2021-03-04] MEDS: BENZTROPINE 1 MG TAB PO SCH ×2 (09:08→21:05)
[2021-03-04] MEDS: DIVALPROEX DR 500 MG TAB PO SCH ×2 (13:34→21:05)
[2021-03-04] MEDS: MELATONIN 5 MG TAB PO PRN (21:05)
[2021-03-04] MEDS: QUEtiapine 200 MG TAB PO SCH (21:05)
--- NOTE | 2021-03-05 08:48 | Progress Note ---
Subjective Date of service: 03/05/21 Principal diagnosis: Schizophrenia Subjective Comment: Per Nurse Note: Received patient 03/04 @ 1915. He is walking in the hallway. Patient is requesting the phone. He denies other needs. Last evening the patient was hyperactive. He had multiple requests and little patience. He denies si/hi/ah/vh. His appetite is good and he is medication compliant. Will continue to monitor patient for safety. The patient was seen today, he is upset that he hasn't been able to reach his . He says she's "playing games and she's going to find somebody else to play with." The patient then states "she's playing with fire and she doesn't know it." When asking the patient what did he mean by that statement, he says "I'm just too old. She needs to find somebody else to play with." When asking him if he had thoughts of hurting his , the patient replied "no, it's nothing like that. I'm not gone hurt nobody." He also denies suicidal thoughts. He denies hallucinations. He says "I'm ready to go home so I can see what's going on." REVIEW OF SYSTEMS Constitutional: Negative for weight loss ENT: Negative for stridor Respiratory: Negative for cough or hemoptysis All other systems reviewed and are negative MENTAL STATUS EXAMINATION General Appearance and Behavior: Age appropriate, fair hygiene, wearing appropriate clothes, pacing, drowsy, poor eye contact, cooperative irritable with questioning. Cooperation: Participating, Hostile and Guarded Psychomotor Behavior: unremarkable and within normal limits Mood: feeling better Affect and affective range:mood congruent Thought Process: Illogical Thought Content: within Speech: Normal volume, Regular rate and rhythm, Intellectual Functioning: Average Suicidal Ideation: Denies SI Homicidal Ideation: Denies HI Hallucinations: Denies Delusions: yet Impulse Control: Impaired Insight and Judgment: Limited insight and judgment Memory: Short term memory intact Attention: Divided attention impaired Orientation: Alert, oriented, Assessment and Plan (1) Schizophrenia Current Visit: Yes Status: Acute Treatment Plan Patient admitted for inpatient psychiatric evaluation, medication adjustment and close monitoring The patient's behavior, mood, sleep and appetite will be closely monitored. Patient enrolled in individual and group therapeutic sessions and encouraged to attend. Patient provided with a safe and structured environment. Patient's physical health needs will be addressed by the Hospitalist. Hospitalist Consulted Labs including CBC, CMP, Lipid profile and Hemoglobin A1C levels ordered for baseline reference Valproic level 03/06/21 Social Assessment will be completed and the Ocular Care Technician will work with patient and family to ensure a suitable and safe disposition Medication adjustment will be made as clinically indicated Increased Depakote DR 500mg po TID yesterday Increased and scheduled Melatonin 10mg po qhs Usual Wellness Holiness/Preservation: - Start Trazodone 50 mg po QHS & 50 mg po QHS PRN between 10 PM & 2 AM for insomnia - Start Melatonin 5 mg po QHS to promote circadian rhythm - Start [place]-3 for brain health, reduce impulsivity, and as adjunctive treatment for mood disorder, continue upon discharge given overall benefits. - Start B1 prophylaxis with 200 mg po for 5 days The patient agreed on the treatment plan, understood the risk, benefit, alternative treatment, potential consequence of no treatment, and gave informed consent. ESLOS 5 days Outpatient psych upon discharge Medications and Allergies Allergies Allergy/AdvReac Type Severity Reaction Status Date / Time No Known Allergies Allergy Verified 02/27/21 12:28 Home Medications Medication Instructions Recorded Confirmed Last Taken Type Benztropine [Cogentin] 1 mg PO BID 02/27/21 02/27/[address] [DepKeilyTE ] 1,000 mg PO DAILY 02/27/21 02/27/21 Unknown History [place] Carbonate 300 mg PO DAILY 02/27/21 02/27/21 Unknown History Nebulizer [Soothe Neb] 1 each MC Q6H 02/27/21 02/27/21 Unknown History QUEtiapine [SEROquel] 200 mg PO HS 02/27/21 02/27/21 Unknown History Temazepam [Restoril] 30 mg PO HS PRN 02/27/21 02/27/21 Unknown History traMADoL [Ultram 50 MG tab] 50 mg PO Q6H 02/27/21 02/27/21 Unknown History Active Meds: Active Medications Benztropine Mesylate (Benztropine 1 Mg Tab) 1 mg PO BID [facility] Last Admin: 03/04/21 21:05 Dose: 1 mg Documented by: Divalproex Sodium (Divalproex Dr 500 Mg Tab) 500 mg PO TID [facility] Last Admin: 03/04/21 21:05 Dose: 500 mg Documented by: Fish Oil ([place]-3 Fatty Acids/Fish Oil 1 Gram Cap) 2,000 mg PO BID [facility] Last Admin: 03/04/21 21:05 Dose: 2,000 mg Documented by: [place] Carbonate ([place] Carbonate Er 300 Mg Tab) 300 mg PO DAILY [facility] Last Admin: 03/04/21 09:07 Dose: 300 mg Documented by: Melatonin (Melatonin 5 Mg Tab) 5 mg PO QHS PRN PRN Reason: Sleep Last Admin: 03/04/21 21:05 Dose: 5 mg Documented by: Quetiapine Fumarate (Quetiapine 200 Mg Tab) 200 mg PO HS [facility] Last Admin: 03/04/21 21:05 Dose: 200 mg Documented by: Temazepam (Temazepam 15 Mg Cap) 30 mg PO QHS PRN PRN Reason: Sleep Last Admin: 03/02/21 22:12 Dose: 30 mg Documented by: Temazepam (Temazepam 15 Mg Cap) 15 mg PO QHS PRN PRN Reason: Sleep Results - Results Labs/Vitals: Laboratory Last Values WBC 7.3 K/mm3 (4.5-11.0) 02/27/21 19:51 RBC 4.84 M/mm3 (3.65-5.03) 02/27/21 19:51 Hgb 15.7 gm/dl (11.8-15.2) H 02/27/21 19:51 Hct 46.4 % (35.5-45.6) H 02/27/21 19:51 MCV 96 fl (84-94) H 02/27/21 19:51 MCH 33 pg (28-32) H 02/27/21 19:51 MCHC 34 % (32-34) 02/27/21 19:51 RDW 14.3 % (13.2-15.2) 02/27/21 19:51 Plt Count 261 K/mm3 (140-440) 02/27/21 19:51 Lymph % (Auto) 25.4 % (13.4-35.0) 02/27/21 19:51 Day % (Auto) 9.8 % (0.0-7.3) H 02/27/21 19:51 Eos % (Auto) 2.0 % (0.0-4.3) 02/27/21 19:51 Baso % (Auto) 0.7 % (0.0-1.8) 02/27/21 19:51 Lymph # (Auto) 1.8 K/mm3 (1.2-5.4) 02/27/21 19:51 Day # (Auto) 0.7 K/mm3 (0.0-0.8) 02/27/21 19:51 Eos # (Auto) 0.1 K/mm3 (0.0-0.4) 02/27/21 19:51 Baso # (Auto) 0.0 K/mm3 (0.0-0.1) 02/27/21 19:51 Seg Neutrophils % 62.1 % (40.0-70.0) 02/27/21 19:51 Seg Neutrophils # 4.5 K/mm3 (1.8-7.7) 02/27/21 19:51 Sodium 141 mmol/L (137-145) 02/27/21 19:51 Potassium 4.2 mmol/L (3.6-5.0) 02/27/21 19:51 Chloride 104.0 mmol/L (98-107) 02/27/21 19:51 Carbon Dioxide 28 mmol/L (22-30) 02/27/21 19:51 Anion Gap 13 mmol/L 02/27/21 19:51 BUN 12 mg/dL (9-20) 02/27/21 19:51 Creatinine 0.7 mg/dL (0.8-1.3) L 02/27/21 19:51 Estimated GFR > 60 ml/min 02/27/21 19:51 BUN/Creatinine Ratio 17 % 02/27/21 19:51 Glucose 93 mg/dL (75-100) 02/27/21 19:51 POC Glucose 81 mg/dL (70-105) 02/27/21 20:20 Hemoglobin A1c 5.3 % (4-6) 02/27/21 19:51 Calcium 10.0 mg/dL (8.4-10.2) 02/27/21 19:51 Total Bilirubin 0.30 mg/dL (0.1-1.2) 02/27/21 19:51 AST 35 units/L (5-40) 02/27/21 19:51 ALT 27 units/L (7-56) 02/27/21 19:51 Alkaline Phosphatase 79 units/L (35-129) 02/27/21 19:51 Total Protein 7.5 g/dL (6.3-8.2) 02/27/21 19:51 Albumin 4.5 g/dL (3.9-5) 02/27/21 19:51 Albumin/Globulin Ratio 1.5 % 02/27/21 19:51 Triglycerides 74 mg/dL (2-149) 02/27/21 19:51 Cholesterol 140 mg/dL (50-199) 02/27/21 19:51 LDL Cholesterol Direct 70 mg/dL (50-130) 02/27/21 19:51 HDL Cholesterol 62 mg/dL (40-59) H 02/27/21 19:51 Cholesterol/HDL Ratio 2.25 % 02/27/21 19:51 TSH 1.800 mlU/mL (0.270-4.200) 02/27/21 19:51 Last Vital Signs Temp 97.9 F 03/04/21 19:36 Pulse 69 03/04/21 19:36 Resp 18 03/04/21 19:36 BP 107/71 03/04/21 19:36 Pulse Ox 100 03/04/21 19:36
[2021-03-05] MEDS: DIVALPROEX DR 500 MG TAB PO SCH ×3 (09:00→21:17)
[2021-03-05] MEDS: OMEGA-3 FATTY ACIDS/FISH OIL 1 GRAM CAP PO SCH ×2 (09:21→21:16)
[2021-03-05] MEDS: LITHIUM CARBONATE ER 300 MG TAB PO SCH (09:21)
[2021-03-05] MEDS: BENZTROPINE 1 MG TAB PO SCH ×2 (09:21→21:16)
[2021-03-05] MEDS: MELATONIN 5 MG TAB PO SCH (21:16)
[2021-03-05] MEDS: QUEtiapine 200 MG TAB PO SCH (21:17)
--- NOTE | 2021-03-06 08:34 | Progress Note ---
Subjective Date of service: 03/06/21 Principal diagnosis: Schizophrenia Subjective Comment: Per Nurse Note: pt rested quietly overtime, he slept for approximately 3hrs, no distress noted, will continue to monitor for safety. Patient seen in the common area eating breakfast and socializing with peers. Patients reports doing well. Patient states "I'm ready to go go home to my ; I'm blessed and I read the bible everyday." Per nurse, patient is compliant with medications and no aggressive behaviors reported. Patient denies any current suicidal/homicidal ideation and denies hallucinations. REVIEW OF SYSTEMS Constitutional: Negative for weight loss ENT: Negative for stridor Respiratory: Negative for cough or hemoptysis All other systems reviewed and are negative MENTAL STATUS EXAMINATION General Appearance and Behavior: Age appropriate, fair hygiene, wearing appropriate clothes, pacing, drowsy, poor eye contact, cooperative irritable with questioning. Cooperation: Participating Psychomotor Behavior: unremarkable and within normal limits Mood: feeling better Affect and affective range:mood congruent Thought Process: Illogical Thought Content: within Speech: Normal volume, Regular rate and rhythm, Intellectual Functioning: Average Suicidal Ideation: Denies SI Homicidal Ideation: Denies HI Hallucinations: Denies Delusions: yet Impulse Control: Impaired Insight and Judgment: Limited insight and judgment Memory: Short term memory intact Attention: Divided attention impaired Orientation: Alert, oriented, Assessment and Plan (1) Schizophrenia Current Visit: Yes Status: Acute Treatment Plan Patient admitted for inpatient psychiatric evaluation, medication adjustment and close monitoring The patient's behavior, mood, sleep and appetite will be closely monitored. Patient enrolled in individual and group therapeutic sessions and encouraged to attend. Patient provided with a safe and structured environment. Patient's physical health needs will be addressed by the Hospitalist. Hospitalist Consulted Labs including CBC, CMP, Lipid profile and Hemoglobin A1C levels ordered for baseline reference Valproic level 03/06/21- Result pending Social Assessment will be completed and the Round Cutter Operator will work with patient and family to ensure a suitable and safe disposition Medication adjustment will be made as clinically indicated Continue Depakote DR 500mg po TID yesterday Continue and scheduled Melatonin 10mg po qhs Usual Wellness Zoroastrianism/Preservation: - Increase Restoril 30mg po QHS - Start Melatonin 5 mg po QHS to promote circadian rhythm - Start [place]-3 for brain health, reduce impulsivity, and as adjunctive treatment for mood disorder, continue upon discharge given overall benefits. - Start B1 prophylaxis with 200 mg po for 5 days The patient agreed on the treatment plan, understood the risk, benefit, alternative treatment, potential consequence of no treatment, and gave informed consent. ESLOS 5 days Outpatient psych upon discharge Medications and Allergies Medications and Allergies Allergies Allergy/AdvReac Type Severity Reaction Status Date / Time No Known Allergies Allergy Verified 02/27/21 12:28 Home Medications Medication Instructions Recorded Confirmed Last Taken Type Benztropine [Cogentin] 1 mg PO BID 02/27/21 02/27/[address] [DepaKOTE DR] 1,000 mg PO DAILY 02/27/21 02/27/21 Unknown History [place] Carbonate 300 mg PO DAILY 02/27/21 02/27/21 Unknown History Nebulizer [Soothe Neb] 1 each MC Q6H 02/27/21 02/27/21 Unknown History QUEtiapine [SEROquel] 200 mg PO HS 02/27/21 02/27/21 Unknown History Temazepam [Restoril] 30 mg PO HS PRN 02/27/21 02/27/21 Unknown History traMADoL [Ultram 50 MG tab] 50 mg PO Q6H 02/27/21 02/27/21 Unknown History Active Meds: Active Medications Benztropine Mesylate (Benztropine 1 Mg Tab) 1 mg PO BID [facility] Last Admin: 03/05/21 21:16 Dose: 1 mg Documented by: Divalproex Sodium (Divalproex Dr 500 Mg Tab) 500 mg PO TID [facility] Last Admin: 03/05/21 21:17 Dose: 500 mg Documented by: Fish Oil ([place]-3 Fatty Acids/Fish Oil 1 Gram Cap) 2,000 mg PO BID [facility] Last Admin: 03/05/21 21:16 Dose: 2,000 mg Documented by: [place] Carbonate ([place] Carbonate Er 300 Mg Tab) 300 mg PO DAILY [facility] Last Admin: 03/05/21 09:21 Dose: 300 mg Documented by: Melatonin (Melatonin 5 Mg Tab) 10 mg PO QHS [facility] Last Admin: 03/05/21 21:16 Dose: 10 mg Documented by: Quetiapine Fumarate (Quetiapine 200 Mg Tab) 200 mg PO [facility] Last Admin: 03/05/21 21:17 Dose: 200 mg Documented by: Temazepam (Temazepam 15 Mg Cap) 15 mg PO QHS PRN PRN Reason: Sleep Last Admin: 03/05/21 21:17 Dose: 15 mg Documented by: Results - Results Labs/Vitals: Laboratory Last Values WBC 7.3 K/mm3 (4.5-11.0) 02/27/21 19:51 RBC 4.84 M/mm3 (3.65-5.03) 02/27/21 19:51 Hgb 15.7 gm/dl (11.8-15.2) H 02/27/21 19:51 Hct 46.4 % (35.5-45.6) H 02/27/21 19:51 MCV 96 fl (84-94) H 02/27/21 19:51 MCH 33 pg (28-32) H 02/27/21 19:51 MCHC 34 % (32-34) 02/27/21 19:51 RDW 14.3 % (13.2-15.2) 02/27/21 19:51 Plt Count 261 K/mm3 (140-440) 02/27/21 19:51 Lymph % (Auto) 25.4 % (13.4-35.0) 02/27/21 19:51 [place] % (Auto) 9.8 % (0.0-7.3) H 02/27/21 19:51 Eos % (Auto) 2.0 % (0.0-4.3) 02/27/21 19:51 Baso % (Auto) 0.7 % (0.0-1.8) 02/27/21 19:51 Lymph # (Auto) 1.8 K/mm3 (1.2-5.4) 02/27/21 19:51 [place] # (Auto) 0.7 K/mm3 (0.0-0.8) 02/27/21 19:51 Eos # (Auto) 0.1 K/mm3 (0.0-0.4) 02/27/21 19:51 Baso # (Auto) 0.0 K/mm3 (0.0-0.1) 02/27/21 19:51 Seg Neutrophils % 62.1 % (40.0-70.0) 02/27/21 19:51 Seg Neutrophils # 4.5 K/mm3 (1.8-7.7) 02/27/21 19:51 Sodium 141 mmol/L (137-145) 02/27/21 19:51 Potassium 4.2 mmol/L (3.6-5.0) 02/27/21 19:51 Chloride 104.0 mmol/L (98-107) 02/27/21 19:51 Carbon Dioxide 28 mmol/L (22-30) 02/27/21 19:51 Anion Gap 13 mmol/L 02/27/21 19:51 BUN 12 mg/dL (9-20) 02/27/21 19:51 Creatinine 0.7 mg/dL (0.8-1.3) L 02/27/21 19:51 Estimated GFR > 60 ml/min 02/27/21 19:51 BUN/Creatinine Ratio 17 % 02/27/21 19:51 Glucose 93 mg/dL (75-100) 02/27/21 19:51 POC Glucose 81 mg/dL (70-105) 02/27/21 20:20 Hemoglobin A1c 5.3 % (4-6) 02/27/21 19:51 Calcium 10.0 mg/dL (8.4-10.2) 02/27/21 19:51 Total Bilirubin 0.30 mg/dL (0.1-1.2) 02/27/21 19:51 AST 35 units/L (5-40) 02/27/21 19:51 ALT 27 units/L (7-56) 02/27/21 19:51 Alkaline Phosphatase 79 units/L (35-129) 02/27/21 19:51 Total Protein 7.5 g/dL (6.3-8.2) 02/27/21 19:51 Albumin 4.5 g/dL (3.9-5) 02/27/21 19:51 Albumin/Globulin Ratio 1.5 % 02/27/21 19:51 Triglycerides 74 mg/dL (2-149) 02/27/21 19:51 Cholesterol 140 mg/dL (50-199) 02/27/21 19:51 LDL Cholesterol Direct 70 mg/dL (50-130) 02/27/21 19:51 HDL Cholesterol 62 mg/dL (40-59) H 02/27/21 19:51 Cholesterol/HDL Ratio 2.25 % 02/27/21 19:51 TSH 1.800 mlU/mL (0.270-4.200) 02/27/21 19:51 Last Vital Signs Temp 98.4 F 03/05/21 19:51 Pulse 82 03/05/21 19:51 Resp 16 03/05/21 19:51 BP 102/72 03/05/21 19:51 Pulse Ox 97 03/05/21 19:51
[2021-03-06] MEDS: DIVALPROEX DR 500 MG TAB PO SCH ×3 (08:35→21:08)
[2021-03-06] MEDS: LITHIUM CARBONATE ER 300 MG TAB PO SCH (09:27)
[2021-03-06] MEDS: OMEGA-3 FATTY ACIDS/FISH OIL 1 GRAM CAP PO SCH ×2 (09:27→21:07)
[2021-03-06] MEDS: BENZTROPINE 1 MG TAB PO SCH ×2 (09:28→21:08)
--- NOTE | 2021-03-06 10:59 | Event Note ---
Date: 03/06/21 Spoke the patient's , [place] to update on progress of patient and discharge planning. Informer that the patient has improved but gets irritable easily. Informed her the patient will discharge on Saturday if uneventful between now and then.
[2021-03-06] MEDS: QUEtiapine 200 MG TAB PO SCH (21:07)
[2021-03-06] MEDS: MELATONIN 5 MG TAB PO SCH (21:08)
[2021-03-06] MEDS ORDERED: TEMAZEPAM 15 MG CAP PO PRN (22:00)
--- NOTE | 2021-03-07 09:15 | Progress Note ---
Subjective Date of service: 03/07/21 Principal diagnosis: Schizophrenia Subjective Comment: Per Nurse Note:pt rested quietly overnight, slept for only 3hrs, no distress noted, will continue to monitor for safety. Patient was seen this morning in the activity room. He reports doing well. He is focused on discharge. Patient is calm and no aggressive behaviors reported by staff. He denies sucidal/homocidal ideation and denies AVHs. Medications and Allergies Allergies Allergy/AdvReac Type Severity Reaction Status Date / Time No Known Allergies Allergy Verified 02/27/21 12:28 Home Medications Medication Instructions Recorded Confirmed Last Taken Type Benztropine [Cogentin] 1 mg PO BID 02/27/21 02/27/[address] [[place] TAPIA] 1,000 mg PO DAILY 02/27/21 02/27/21 Unknown History [place] Carbonate 300 mg PO DAILY 02/27/21 02/27/21 Unknown History Nebulizer [Soothe Neb] 1 each MC Q6H 02/27/21 02/27/21 Unknown History QUEtiapine [SEROquel] 200 mg PO HS 02/27/21 02/27/21 Unknown History Temazepam [Restoril] 30 mg PO HS PRN 02/27/21 02/27/21 Unknown History traMADoL [Ultram 50 MG tab] 50 mg PO Q6H 02/27/21 02/27/21 Unknown History Active Meds: Active Medications Benztropine Mesylate (Benztropine 1 Mg Tab) 1 mg PO BID [facility] Last Admin: 03/06/21 21:08 Dose: 1 mg Documented by: Divalproex Sodium (Divalproex Dr 500 Mg Tab) 500 mg PO TID [facility] Last Admin: 03/06/21 21:08 Dose: 500 mg Documented by: Fish Oil ([place]-3 Fatty Acids/Fish Oil 1 Gram Cap) 2,000 mg PO BID [facility] Last Admin: 03/06/21 21:07 Dose: 2,000 mg Documented by: [place] Carbonate ([place] Carbonate Er 300 Mg Tab) 300 mg PO DAILY [facility] Last Admin: 03/06/21 09:27 Dose: 300 mg Documented by: Melatonin (Melatonin 5 Mg Tab) 10 mg PO QHS [facility] Last Admin: 03/06/21 21:08 Dose: 10 mg Documented by: Quetiapine Fumarate (Quetiapine 200 Mg Tab) 200 mg PO HS [facility] Last Admin: 03/06/21 21:07 Dose: 200 mg Documented by: Temazepam (Temazepam 15 Mg Cap) 30 mg PO QHS PRN PRN Reason: Sleep Results - Results Labs/Vitals: Laboratory Last Values WBC 7.3 K/mm3 (4.5-11.0) 02/27/21 19:51 RBC 4.84 M/mm3 (3.65-5.03) 02/27/21 19:51 Hgb 15.7 gm/dl (11.8-15.2) H 02/27/21 19:51 Hct 46.4 % (35.5-45.6) H 02/27/21 19:51 MCV 96 fl (84-94) H 02/27/21 19:51 MCH 33 pg (28-32) H 02/27/21 19:51 MCHC 34 % (32-34) 02/27/21 19:51 RDW 14.3 % (13.2-15.2) 02/27/21 19:51 Plt Count 261 K/mm3 (140-440) 02/27/21 19:51 Lymph % (Auto) 25.4 % (13.4-35.0) 02/27/21 19:51 [place] % (Auto) 9.8 % (0.0-7.3) H 02/27/21 19:51 Eos % (Auto) 2.0 % (0.0-4.3) 02/27/21 19:51 Baso % (Auto) 0.7 % (0.0-1.8) 02/27/21 19:51 Lymph # (Auto) 1.8 K/mm3 (1.2-5.4) 02/27/21 19:51 [place] # (Auto) 0.7 K/mm3 (0.0-0.8) 02/27/21 19:51 Eos # (Auto) 0.1 K/mm3 (0.0-0.4) 02/27/21 19:51 Baso # (Auto) 0.0 K/mm3 (0.0-0.1) 02/27/21 19:51 Seg Neutrophils % 62.1 % (40.0-70.0) 02/27/21 19:51 Seg Neutrophils # 4.5 K/mm3 (1.8-7.7) 02/27/21 19:51 Sodium 141 mmol/L (137-145) 02/27/21 19:51 Potassium 4.2 mmol/L (3.6-5.0) 02/27/21 19:51 Chloride 104.0 mmol/L (98-107) 02/27/21 19:51 Carbon Dioxide 28 mmol/L (22-30) 02/27/21 19:51 Anion Gap 13 mmol/L 02/27/21 19:51 BUN 12 mg/dL (9-20) 02/27/21 19:51 Creatinine 0.7 mg/dL (0.8-1.3) L 02/27/21 19:51 Estimated GFR > 60 ml/min 02/27/21 19:51 BUN/Creatinine Ratio 17 % 02/27/21 19:51 Glucose 93 mg/dL (75-100) 02/27/21 19:51 POC Glucose 81 mg/dL (70-105) 02/27/21 20:20 Hemoglobin A1c 5.3 % (4-6) 02/27/21 19:51 Calcium 10.0 mg/dL (8.4-10.2) 02/27/21 19:51 Total Bilirubin 0.30 mg/dL (0.1-1.2) 02/27/21 19:51 AST 35 units/L (5-40) 02/27/21 19:51 ALT 27 units/L (7-56) 02/27/21 19:51 Alkaline Phosphatase 79 units/L (35-129) 02/27/21 19:51 Total Protein 7.5 g/dL (6.3-8.2) 02/27/21 19:51 Albumin 4.5 g/dL (3.9-5) 02/27/21 19:51 Albumin/Globulin Ratio 1.5 % 02/27/21 19:51 Triglycerides 74 mg/dL (2-149) 02/27/21 19:51 Cholesterol 140 mg/dL (50-199) 02/27/21 19:51 LDL Cholesterol Direct 70 mg/dL (50-130) 02/27/21 19:51 HDL Cholesterol 62 mg/dL (40-59) H 02/27/21 19:51 Cholesterol/HDL Ratio 2.25 % 02/27/21 19:51 TSH 1.800 mlU/mL (0.270-4.200) 02/27/21 19:51 Valproic Acid 107.1 ug/mL (50-100) H 03/06/21 13:34 Last Vital Signs Temp 97.5 F L 03/07/21 06:27 Pulse 78 03/07/21 06:27 Resp 16 03/07/21 06:27 BP 115/84 03/07/21 06:27 Pulse Ox 99 03/07/21 06:27
[2021-03-07] MEDS: OMEGA-3 FATTY ACIDS/FISH OIL 1 GRAM CAP PO SCH ×2 (09:34→22:28)
[2021-03-07] MEDS: BENZTROPINE 1 MG TAB PO SCH ×2 (09:34→22:28)
[2021-03-07] MEDS: DIVALPROEX DR 500 MG TAB PO SCH ×3 (09:34→20:47)
[2021-03-07] MEDS: LITHIUM CARBONATE ER 300 MG TAB PO SCH (09:34)
--- NOTE | 2021-03-07 20:05 | Progress Note ---
Assessment and Plan - Patient Problems (1) Vascular dementia with behavioral disturbance Status: Acute Plan to address problem: Verbal prompting, verbal redirection, benzodiazepine therapy as clinically indicated (2) Cerebral atherosclerosis Status: Acute Plan to address problem: Supportive care, risk factor reduction, antiplatelet therapy as clinically indicated. (3) Asthma Status: Acute Qualifiers: Asthma severity: mild Asthma persistence: intermittent Asthma complication type: uncomplicated Qualified Code(s): J45.20 - Mild intermittent asthma, uncomplicated Plan to address problem: Supportive care, bronchodilator therapy as clinically indicated (4) Schizophrenia Status: Acute Qualifiers: Schizophrenia type: undifferentiated schizophrenia Qualified Code(s): F20.3 - Undifferentiated schizophrenia Plan to address problem: Supportive care, continue medical management as per primary team. (5) Nicotine dependence Status: Acute Qualifiers: Nicotine product type: cigarettes Substance use status: in withdrawal Qualified Code(s): F17.213 - Nicotine dependence, cigarettes, with withdrawal Plan to address problem: Smoking cessation counseling, supportive care, behavior change counseling, +15 minutes. History Interval history: 65 YO Male with Schizophrenia, Vascular Dementia with Behavioral Disturbance, Cerebral Atherosclerosis, Asthma, Nicotine Dependence admitted to [facility] for Psychiatric stabilization. Patient seen and evaluated in the recreation room. No reported nursing events. Patient appears comfortable. Hospitalist Physical - Constitutional Vitals: Temp Pulse Resp BP Pulse Ox 97.5 F L 78 16 115/84 99 03/07/21 06:27 03/07/21 06:27 03/07/21 06:27 03/07/21 06:27 03/07/21 06:27 General appearance: Present: no acute distress - EENT Eyes: Present: PERRL ENT: hearing intact - Neck Neck: Present: supple - Respiratory Respiratory: bilateral: diminished - Cardiovascular Rhythm: regular Heart Sounds: Present: S1 & S2 - Extremities Extremities: no ischemia Peripheral Pulses: within normal limits - Abdominal General gastrointestinal: soft, non-tender, non-distended - Integumentary Integumentary: Present: clear, dry - Psychiatric Psychiatric: cooperative - Neurologic Neurologic: CNII-XII intact Results - Labs CBC & Chem 7: 02/27/21 19:51 02/27/21 19:51 Labs: Laboratory Last Values WBC 7.3 K/mm3 (4.5-11.0) 02/27/21 19:51 RBC 4.84 M/mm3 (3.65-5.03) 02/27/21 19:51 Hgb 15.7 gm/dl (11.8-15.2) H 02/27/21 19:51 Hct 46.4 % (35.5-45.6) H 02/27/21 19:51 MCV 96 fl (84-94) H 02/27/21 19:51 MCH 33 pg (28-32) H 02/27/21 19:51 MCHC 34 % (32-34) 02/27/21 19:51 RDW 14.3 % (13.2-15.2) 02/27/21 19:51 Plt Count 261 K/mm3 (140-440) 02/27/21 19:51 Lymph % (Auto) 25.4 % (13.4-35.0) 02/27/21 19:51 [place] % (Auto) 9.8 % (0.0-7.3) H 02/27/21 19:51 Eos % (Auto) 2.0 % (0.0-4.3) 02/27/21 19:51 Baso % (Auto) 0.7 % (0.0-1.8) 02/27/21 19:51 Lymph # (Auto) 1.8 K/mm3 (1.2-5.4) 02/27/21 19:51 [place] # (Auto) 0.7 K/mm3 (0.0-0.8) 02/27/21 19:51 Eos # (Auto) 0.1 K/mm3 (0.0-0.4) 02/27/21 19:51 Baso # (Auto) 0.0 K/mm3 (0.0-0.1) 02/27/21 19:51 Seg Neutrophils % 62.1 % (40.0-70.0) 02/27/21 19:51 Seg Neutrophils # 4.5 K/mm3 (1.8-7.7) 02/27/21 19:51 Sodium 141 mmol/L (137-145) 02/27/21 19:51 Potassium 4.2 mmol/L (3.6-5.0) 02/27/21 19:51 Chloride 104.0 mmol/L (98-107) 02/27/21 19:51 Carbon Dioxide 28 mmol/L (22-30) 02/27/21 19:51 Anion Gap 13 mmol/L 02/27/21 19:51 BUN 12 mg/dL (9-20) 02/27/21 19:51 Creatinine 0.7 mg/dL (0.8-1.3) L 02/27/21 19:51 Estimated GFR > 60 ml/min 02/27/21 19:51 BUN/Creatinine Ratio 17 % 02/27/21 19:51 Glucose 93 mg/dL (75-100) 02/27/21 19:51 POC Glucose 81 mg/dL (70-105) 02/27/21 20:20 Hemoglobin A1c 5.3 % (4-6) 02/27/21 19:51 Calcium 10.0 mg/dL (8.4-10.2) 02/27/21 19:51 Total Bilirubin 0.30 mg/dL (0.1-1.2) 02/27/21 19:51 AST 35 units/L (5-40) 02/27/21 19:51 ALT 27 units/L (7-56) 02/27/21 19:51 Alkaline Phosphatase 79 units/L (35-129) 02/27/21 19:51 Total Protein 7.5 g/dL (6.3-8.2) 02/27/21 19:51 Albumin 4.5 g/dL (3.9-5) 02/27/21 19:51 Albumin/Globulin Ratio 1.5 % 02/27/21 19:51 Triglycerides 74 mg/dL (2-149) 02/27/21 19:51 Cholesterol 140 mg/dL (50-199) 02/27/21 19:51 LDL Cholesterol Direct 70 mg/dL (50-130) 02/27/21 19:51 HDL Cholesterol 62 mg/dL (40-59) H 02/27/21 19:51 Cholesterol/HDL Ratio 2.25 % 02/27/21 19:51 TSH 1.800 mlU/mL (0.270-4.200) 02/27/21 19:51 Valproic Acid 107.1 ug/mL (50-100) H 03/06/21 13:34 Etienne/IV: Voiding Method Toilet Active Medications - Current Medications Current Medications: Generic Name Dose Route Start Last Admin Trade Name Freq PRN Reason Stop Dose Admin Benztropine Mesylate 1 mg 03/01/21 10:00 03/07/21 09:34 Benztropine 1 Mg Tab PO 1 mg BID PAULINE Administration Divalproex Sodium 500 mg 03/04/21 14:00 03/07/21 14:[address] 500 Mg Tab PO 500 mg TID PAULINE Administration Fish Oil 2,000 mg 02/27/21 22:00 03/07/21 09:34 [place]-3 Fatty Acids/Fish Oil 1 Gram Cap PO 2,000 mg BID PAULINE Administration [place] Carbonate 300 mg 03/01/21 10:00 03/07/21 09:34 [place] Carbonate Er 300 Mg Tab PO 300 mg DAILY PAULINE Administration Melatonin 10 mg 03/05/21 22:00 03/06/21 21:08 Melatonin 5 Mg Tab PO 10 mg QHS PAULINE Administration Quetiapine Fumarate 200 mg 03/01/21 22:00 03/06/21 21:07 Quetiapine 200 Mg Tab PO 200 mg HS PAULINE Administration Temazepam 30 mg 03/06/21 22:00 Temazepam 15 Mg Cap PO QHS PRN Sleep Nutrition/Malnutrition Assess - Dietary Evaluation Nutrition/Malnutrition Findings: Nutrition Notes Start: 03/06/21 11:34 Freq: Status: Active Protocol: Document 03/06/21 11:34 BILL (Rec: 03/06/21 11:35 BILL [id number]) Nutrition Notes Need for Assessment generated from: LOS Initial or Follow up Brief Note Current Diet Regular Height 5 ft 11 in Weight 77.1 kg [place] Body Weight (kg) 78.18 BMI 23.7 Weight Status Appropriate Subjective/Other Information Pt screened for LOS. He has consumed 96% of meals since admission. Percent of energy/protein needs met: 100% energy and pro Burn Absent Trauma Absent Minimum of two criteria No Is patient on ventilator? No Is Patient Ambulatory and/or Out of Bed Yes REE-([place]-St. Jeor-ambulatory/OOB) [ 2058.069 [id number]] Calculation Used for Recommendations [place]-St Jeor Additional Notes Pro needs 1-1.2g/k-93g/ day Fluid needs 1ml/kcal Nutrition Intervention Revisit per MD consult or patient Sign Off request:
[2021-03-07] MEDS: MELATONIN 5 MG TAB PO SCH (22:29)
[2021-03-07] MEDS: QUEtiapine 200 MG TAB PO SCH (22:29)
[2021-03-08 08:19] VITALS: BP 111/79
--- NOTE | 2021-03-08 09:37 | Discharge Summary ---
Providers - Providers Date of Admission: 02/27/21 17:33 Date of discharge: 03/08/21 Attending physician: PITA GARZA MD 02/27/21 12:30 Consult to Physician [CONS] Routine Comment: Consulting Provider: FILOMENA REID Physician Instructions: Reason For Exam: med mangt Primary care physician: BELL MAKER Hospitalization Reason for admission: psychosis Admitting Diagnosis: F20.9 - SCHIZOPHRENIA, UNSPECIFIED Condition: Stable Hospital course: The patient was provided inpatient psychiatric treatment with safe and supportive care, medication adjustment, adverse effect monitoring, medical evaluations, medical treatments, assessment and psycho-education. The patient's mood, cognition, behavior, moral support are improved and stabilized. St the time of discharge, the patient had no endangering behavior and no debilitating adverse effects. The patient agreed on potential consequences of no treatment and gave informed consent. Disposition: - TO HOME OR SELFCARE Time spent for discharge: 38 Allergies/Adverse Reactions: Allergies No Known Allergies Allergy (Verified 02/27/21 12:28) Vital Signs: Last Vital Signs Temp 97.1 F L 03/08/21 07:24 Pulse 63 03/08/21 07:24 Resp 18 03/08/21 07:24 BP 111/79 03/08/21 07:24 Pulse Ox 99 03/08/21 07:24 Last Lab: Laboratory Last Values WBC 7.3 K/mm3 (4.5-11.0) 02/27/21 19:51 RBC 4.84 M/mm3 (3.65-5.03) 02/27/21 19:51 Hgb 15.7 gm/dl (11.8-15.2) H 02/27/21 19:51 Hct 46.4 % (35.5-45.6) H 02/27/21 19:51 MCV 96 fl (84-94) H 02/27/21 19:51 MCH 33 pg (28-32) H 02/27/21 19:51 MCHC 34 % (32-34) 02/27/21 19:51 RDW 14.3 % (13.2-15.2) 02/27/21 19:51 Plt Count 261 K/mm3 (140-440) 02/27/21 19:51 Lymph % (Auto) 25.4 % (13.4-35.0) 02/27/21 19:51 [place] % (Auto) 9.8 % (0.0-7.3) H 02/27/21 19:51 Eos % (Auto) 2.0 % (0.0-4.3) 02/27/21 19:51 Baso % (Auto) 0.7 % (0.0-1.8) 02/27/21 19:51 Lymph # (Auto) 1.8 K/mm3 (1.2-5.4) 02/27/21 19:51 [place] # (Auto) 0.7 K/mm3 (0.0-0.8) 02/27/21 19:51 Eos # (Auto) 0.1 K/mm3 (0.0-0.4) 02/27/21 19:51 Baso # (Auto) 0.0 K/mm3 (0.0-0.1) 02/27/21 19:51 Seg Neutrophils % 62.1 % (40.0-70.0) 02/27/21 19:51 Seg Neutrophils # 4.5 K/mm3 (1.8-7.7) 02/27/21 19:51 Sodium 141 mmol/L (137-145) 02/27/21 19:51 Potassium 4.2 mmol/L (3.6-5.0) 02/27/21 19:51 Chloride 104.0 mmol/L (98-107) 02/27/21 19:51 Carbon Dioxide 28 mmol/L (22-30) 02/27/21 19:51 Anion Gap 13 mmol/L 02/27/21 19:51 BUN 12 mg/dL (9-20) 02/27/21 19:51 Creatinine 0.7 mg/dL (0.8-1.3) L 02/27/21 19:51 Estimated GFR > 60 ml/min 02/27/21 19:51 BUN/Creatinine Ratio 17 % 02/27/21 19:51 Glucose 93 mg/dL (75-100) 02/27/21 19:51 POC Glucose 81 mg/dL (70-105) 02/27/21 20:20 Hemoglobin A1c 5.3 % (4-6) 02/27/21 19:51 Calcium 10.0 mg/dL (8.4-10.2) 02/27/21 19:51 Total Bilirubin 0.30 mg/dL (0.1-1.2) 02/27/21 19:51 AST 35 units/L (5-40) 02/27/21 19:51 ALT 27 units/L (7-56) 02/27/21 19:51 Alkaline Phosphatase 79 units/L (35-129) 02/27/21 19:51 Total Protein 7.5 g/dL (6.3-8.2) 02/27/21 19:51 Albumin 4.5 g/dL (3.9-5) 02/27/21 19:51 Albumin/Globulin Ratio 1.5 % 02/27/21 19:51 Triglycerides 74 mg/dL (2-149) 02/27/21 19:51 Cholesterol 140 mg/dL (50-199) 02/27/21 19:51 LDL Cholesterol Direct 70 mg/dL (50-130) 02/27/21 19:51 HDL Cholesterol 62 mg/dL (40-59) H 02/27/21 19:51 Cholesterol/HDL Ratio 2.25 % 02/27/21 19:51 TSH 1.800 mlU/mL (0.270-4.200) 02/27/21 19:51 Valproic Acid 107.1 ug/mL (50-100) H 03/06/21 13:34 Core Measure Documentation - Palliative Care Palliative Care/ Comfort Measures: Not Applicable - Core Measures Any of the following diagnoses?: none Exam - Constitutional Vitals: Temp Pulse Resp BP Pulse Ox 97.1 F L 63 18 111/79 99 03/08/21 07:24 03/08/21 07:24 03/08/21 07:24 03/08/21 07:24 03/08/21 07:24 General appearance: Present: no acute distress - EENT Eyes: Present: PERRL, EOM intact ENT: hearing intact, clear oral mucosa - Neck Neck: Present: supple, normal ROM - Respiratory Respiratory effort: normal Plan Activity: advance as tolerated Weight Bearing Status: Weight Bear as Tolerated Care Plan Goals: Maintain good and stable mental health Plan of Treatment: The patient should be compliant with medications, not to use drugs, and not to drink alcohol. The patient understands that if suicidal ideas, homicidal ideas or any endangering feeling arise, the patient should seek assistance including, but not limited to crisis hotline, and emergency room. Assessment: Schizophrenia At the time of discharge the patient was a/o x 3. He denies any SI/HI or hallucinations of any kind. He states he wanted to get home to his and he had been offered a job. Follow up with: PRIMARY CARE, [Primary Care Provider] - 7 Days Prescriptions: Melatonin [Melatonin 5MG TAB] 10 mg PO QHS #60 tablet Temazepam [Restoril] 30 mg PO QHS PRN #15 capsule PRN Reason: Sleep Divalproex [Dario Villanueva] 500 mg PO TID #90 tablet [place]-3 Fatty Acids/Fish Oil [Fish Oil] 2,000 mg PO BID #120 capsule
[2021-03-08] MEDS: OMEGA-3 FATTY ACIDS/FISH OIL 1 GRAM CAP PO SCH (09:39)
[2021-03-08] MEDS: DIVALPROEX DR 500 MG TAB PO SCH (09:39)
[2021-03-08] MEDS: BENZTROPINE 1 MG TAB PO SCH (09:39)
[2021-03-08] MEDS: LITHIUM CARBONATE ER 300 MG TAB PO SCH (09:39)
== END 2021-03-08 10:50 | disposition home or self-care (01) | DRG 885 ==
LOC: 3A 12:26 → UNDOADMIN 12:26 → 5A 17:33 → UNDODISIN 02-28 20:40
PROVIDERS: ADMIT Psychiatry & Neurology Psychiatry; ATTEND Psychiatry & Neurology Psychiatry
DX: F20.9 Schizophrenia, unspecified (principal); E44.0 Moderate protein-calorie malnutrition; F17.210 Nicotine dependence, cigarettes, uncomplicated; F43.10 Post-traumatic stress disorder, unspecified; F17.200 Nicotine dependence, unspecified, uncomplicated; Z68.23 Body mass index [BMI] 23.0-23.9, adult; Z79.899 Other long term (current) drug therapy
CPT/HCPCS: 36415; 80053; 80061; 80164; 82962; 83036; 84443; 85025; G0378